=== PATIENT | male | born 1945 ===

== ENCOUNTER 2024-09-07 06:27 | Observation (INO) ==
[~2024-09-07 06:27] MED LIST: NS 0.45% 1000 ml BAG 1,000 ML IV SCH; Naloxone 0.4 mg VIAL 0.4 mg/ml 1 ml VIAL IV PRN; Ondansetron 4 mg VIAL 2 MG/ML 2 ml VIAL IV PRN; ROPIVACAINE 5 MG/ML 30 ML BTL (0.5%) ONE
[2024-09-07] MEDS: Buffered Lidocaine 1% SYRIN 1 ml INTRADERM ONE (06:58)
[2024-09-07] MEDS ORDERED: Tranexamic Acid 1 GM/100ML BAG 2,000 MG/200 ML BAG IV ONE (07:01)
[2024-09-07] MEDS ORDERED: ceFAZolin 2 GM PREMIX 2 GM/50 ML BAG ONE (07:01)
[2024-09-07 07:07] LABS: Rapid COVID-19 Molecular Undetected (Undetected)
[2024-09-07] MEDS ORDERED: Phenylephrine IV 10 MG/ML 1 ml VIAL ONE (07:09)
[2024-09-07] MEDS ORDERED: Dexamethasone IV 4 MG/ML VIAL 1 ml VIAL ONE (07:09)
[2024-09-07] MEDS ORDERED: Ondansetron 4 mg VIAL 2 MG/ML 2 ml VIAL ONE (07:09)
[2024-09-07] MEDS: Lactated Ringers 1000 ml BAG 1,000 ML IV SCH ×2 (07:26→14:36)
[2024-09-07] MEDS ORDERED: Magnesium Hydroxide LIQ 30 ML UDC PO PRN (07:58)
[2024-09-07] MEDS ORDERED: Ondansetron 4 mg VIAL 2 MG/ML 2 ml VIAL IV PRN (07:58)
[2024-09-07] MEDS ORDERED: Calcium Carb (TUMS) 500 mg CHEW TAB PO PRN (07:58)
[2024-09-07] MEDS ORDERED: Ondansetron ODT 4 mg TAB 4 MG TAB PO PRN (07:58)
[2024-09-07] MEDS ORDERED: Morphine 2 MG/ML SYRINGE IV PRN (07:58)
[2024-09-07] MEDS ORDERED: Lactulose 30 ml UDC PO PRN (07:58)
[2024-09-07] MEDS ORDERED: Lidocaine 2% PF 5 ML VIAL ONE (08:11)
[2024-09-07] MEDS ORDERED: Midazolam 2 mg/2 ml VIAL 1 mg/ml 2 ml VIAL (2 mg) ONE (08:14)
[2024-09-07] MEDS ORDERED: fentaNYL 100 mcg/2 ml 50 MCG/ML VIAL ONE ×3 (08:14→12:15)
[2024-09-07] MEDS ORDERED: ROPIVACAINE 5 MG/ML 30 ML BTL (0.5%) ONE (08:15)
[2024-09-07] MEDS ORDERED: HYDROmorphone 0.5 MG/0.5 ML SYRINGE ONE ×2 (09:29→10:33)
[2024-09-07] MEDS ORDERED: Dexmedetomidine 200 mcg/2 ml 2 ml VIAL (200 mcg) ONE (10:18)
[2024-09-07] MEDS: fentaNYL 100 mcg/2 ml 50 MCG/ML VIAL IV PRN (12:17)
[2024-09-07] MEDS: Acetaminophen IV 1 GM/100ML 1,000 MG/100 ML BAG IV ONE (15:29)
[2024-09-07] MEDS: Vitamin THERAPEUTIC TAB PO SCH (15:30)
[2024-09-07] MEDS: Magnesium Hydroxide LIQ 30 ML UDC PO SCH (15:31)
[2024-09-07] MEDS: ceFAZolin 2 GM PREMIX 2 GM/50 ML BAG IV SCH (18:19)
[2024-09-08 06:20] LABS: Hemoglobin 11.4 g/dL (13.2-16.3); Mean Platelet Volume 9.1 fL (7.5-11.2); Platelet Count 137 10^3/uL (150-450)
[2024-09-08 06:37] LABS: Calcium 8.3 mg/dL (8.6-10.3); Creatinine, Serum 1.27 mg/dL (0.67-1.17); Potassium 4.5 mmol/L (3.5-5.0); eGFR CKD-EPI 57.5 (>60)
[2024-09-08 10:11] VITALS: BP 103/55
== END 2024-09-08 14:05 | disposition home or self-care (01) ==
LOC: OR 06:27 → INTOOBSV 14:09 → SSU 14:09
PROVIDERS: ADMIT Orthopaedic Surgery Adult Reconstructive Orthopaedic Surgery; ATTEND Orthopaedic Surgery Adult Reconstructive Orthopaedic Surgery